=== PATIENT | female | born 1955 | race Caucasian/White ===

== ENCOUNTER 2021-09-29 16:12 | Emergency (ER) | payer MEDICAID ==
[~2021-09-29] VITALS: Ht 139.7 cm; Wt 73.0 kg
[~2021-09-29 16:12] MED LIST: AMLO10TA80 PO; GEMF600T90 PO; HYDR12.529 PO; LEVO100T9 PO; LOSA50TA41 PO; METF-416 PO
[2021-09-29] MEDS ORDERED: ATOR40TA70 PO (16:19)
[2021-09-29] MEDS ORDERED: LISI-648 PO (16:19)
[2021-09-29] MEDS ORDERED: CARV6.2548 PO (16:19)
[2021-09-29] MEDS ORDERED: ACETAMINOPHEN 325MG TABLET PO STA (16:47)
[2021-09-29] MEDS ORDERED: AMLODIPINE 10MG TABLET PO ONE (17:00)
[2021-09-29 17:18] LABS: CHLORIDE 97 mEq/L (98-107)
[2021-09-29 17:22] LABS: BASOPHILS % 0.7 % (0.0-2.0); EOSINOPHILS % 1.4 % (0.0-5.0); HEMATOCRIT. 31.1 % (36.0-48.0); HEMOGLOBIN. 10.8 g/dL (12.0-16.0); MEAN CORPUSCULAR HEMOGLOBIN 29.6 pg (28.0-32.0); MEAN CORPUSCULAR VOLUME 85.4 fL (81.0-99.0); MEAN PLATELET VOLUME 7.4 fl (7.4-10.4); MONOCYTES % 4.2 % (2.0-8.0); NEUTROPHILS % 67.7 % (40.0-76.0); PLATELET 305 x1000/uL (130-400); RED BLOOD CELL COUNT 3.65 mill/uL (4.2-5.4); RED CELL DISTRIBUTION WIDTH 13.8 % (11.6-14.6)
[2021-09-29 20:10] VITALS: BP 142/89
== END 2021-09-29 20:16 | disposition home or self-care (01) ==
LOC: ER 16:12
DX: I16.0 Hypertensive urgency (principal); E78.00 Pure hypercholesterolemia, unspecified; E11.9 Type 2 diabetes mellitus without complications; Z79.899 Other long term (current) drug therapy; Z98.890 Other specified postprocedural states; Z86.39 Personal history of other endocrine, nutritional and metabolic disease
CPT/HCPCS: 36415; 80053; 85025; 93005; 99285